=== PATIENT | female | born 1990 | race African-American/Black ===

== ENCOUNTER 2021-07-06 11:09 | Emergency (ER) | payer SELFPAY ==
[2021-07-06] MEDS ORDERED: Sodium Chloride 0.9% 10 ML Syringe FLUSH PRN (11:27)
[2021-07-06] MEDS: Sodium Chloride 0.9% 1,000 ML IV SCH (11:47)
[2021-07-06] MEDS: Ketorolac 30 MG/ML SDV IVPUSH ONE (11:54)
[2021-07-06] MEDS: Ondansetron 4 MG/2 ML SDV IVPUSH PRN (11:55)
[2021-07-06] MEDS: diphenhydrAMINE 50 MG/ML SDV IVPUSH ONE (11:55)
--- NOTE | 2021-07-06 12:33 | EDM.PDOC ---
ED HPI GENERAL MEDICAL PROBLEM - General Chief Complaint: Headache Stated Complaint: Headache Time Seen by Provider: 07/06/21 11:30 Source of Information: Reports: Patient, RN Notes Reviewed History Limitations: Reports: No Limitations - History of Present Illness INITIAL COMMENTS - FREE TEXT/NARRATIVE: This patient presents to the emergency department for evaluation of a headache. She states that she has had a headache for several days and went to another emergency department yesterday where she was Covid tested and given Tylenol. She states that her headache has continued to and that Tylenol is not helping her anymore. She has a history of migraines when she was younger but has not had any for quite some time. She is also approximately 9 weeks gestation but has not established care and is unsure of dates. She has had some photophobia with this as well as some nausea without vomiting or diarrhea. She has had no dysuria. She is not had a fever, sore throat, cough. She is from [place] and has been up here working and will be returning to [place] in approximately 1 week. ED ROS GENERAL - Review of Systems Review Of Systems: Comprehensive ROS is negative, except as noted in HPI. - Physical Exam Exam: See Below Exam Limited By: No Limitations General Appearance: Alert, No Apparent Distress Eye Exam: Bilateral Eye: EOMI, PERRL Ears: Normal External Exam Nose: Normal Inspection Head Exam: Atraumatic, Normocephalic Neck: Normal Inspection, Full Range of Motion Respiratory/Chest: No Respiratory Distress, Lungs Clear, Normal Breath Sounds, No Accessory Muscle Use Neuro Exam (Abbreviated): Alert, Oriented Psychiatric: Normal Affect, Normal Mood Skin Exam: Warm, Dry, Intact, Normal Color Course - Orders/Labs/Meds Orders: Active Orders 24 hr Category Date Time Status Ondansetron [Zofran] Med 07/06/21 11:26 Ordered 4 mg IVPUSH Q4H PRN Sodium Chloride 0.9% [Normal Saline] 1,000 ml Med 07/06/21 11:30 Ordered IV ASDIRECTED Sodium Chloride 0.9% [Saline Flush] Med 07/06/21 11:27 Ordered 10 ml FLUSH ASDIRECTED PRN Saline Lock Insert [OM.PC] Routine Oth 07/06/21 11:27 Ordered Medication Orders Sodium Chloride (Normal Saline) 1,000 mls @ 999 mls/hr IV ASDIRECTED CORAL Last Admin: 07/06/21 11:47 Dose: 999 mls/hr Documented by: NALLELY Ondansetron HCl (Ondansetron 4 Mg/2 Ml Sdv) 4 mg IVPUSH Q4H PRN PRN Reason: Nausea/Vomiting Last Admin: 07/06/21 11:55 Dose: 4 mg Documented by: NALLELY Sodium Chloride (Sodium Chloride 0.9% 10 Ml Syringe) 10 ml FLUSH ASDIRECTED PRN PRN Reason: Keep Vein Open Meds: Medications Generic Name Dose Route Start Last Admin Trade Name Freq PRN Reason Stop Dose Admin Sodium Chloride 1,000 mls @ 999 mls/hr 07/06/21 11:30 07/06/21 11:47 Normal Saline IV 999 mls/hr ASDIRECTED CORAL Administration Ondansetron HCl 4 mg 07/06/21 11:26 07/06/21 11:55 Ondansetron 4 Mg/2 Ml Sdv IVPUSH 4 mg Q4H PRN Administration Nausea/Vomiting Sodium Chloride 10 ml 07/06/21 11:27 Sodium Chloride 0.9% 10 Ml Syringe FLUSH ASDIRECTED PRN Keep Vein Open Discontinued Medications Generic Name Dose Route Start Last Admin Trade Name Freq PRN Reason Stop Dose Admin Diphenhydramine HCl 50 mg 07/06/21 11:26 07/06/21 11:55 Diphenhydramine 50 Mg/Ml Sdv IVPUSH 07/06/21 11:27 50 mg ONETIME ONE Administration Ketorolac Tromethamine 30 mg 07/06/21 11:27 07/06/21 11:54 Ketorolac 30 Mg/Ml Sdv IVPUSH 07/06/21 11:28 30 mg ONETIME ONE Administration - Re-Assessments/Exams Free Text/Narrative Re-Assessment/Exam: 07/06/21 12:31 This patient presents to the emergency department with a report of a headache. She denies any new symptoms and did attempt to use Tylenol prior to arrival without success. Her physical examination was found to be normal with exception of some mild photophobia. Specifically there was a nonfocal neurologic exam with no signs concerning to infectious etiologies. Clinically the life-t hreatening diagnosis of subarachnoid hemorrhage and meningitis or encephalitis were excluded. There are no concerns for metabolic disorders which may produce a headache. After interventions noted above she reported excellent improvement and was able to be discharged home. Patient was instructed to follow-up with her primary care provider in 2 to 3 days if she is not better, sooner if she is worse in any way. She was also encouraged to establish care. The patient was stable at the time of discharge. Departure - Departure Time of Disposition: 12:45 Disposition: Home, Self-Care 01 Condition: Good Clinical Impression: Migraine - Discharge Information *PRESCRIPTION DRUG MONITORING PROGRAM REVIEWED*: No *COPY OF PRESCRIPTION DRUG MONITORING REPORT IN PATIENT ARSENIO: No Instructions: Migraine Headache, [id number] - My Orders Last 24 Hours: My Active Orders 07/06/21 11:26 Ondansetron [Zofran] 4 mg IVPUSH Q4H PRN 07/06/21 11:27 Sodium Chloride 0.9% [Saline Flush] 10 ml FLUSH ASDIRECTED PRN Saline Lock Insert [OM.PC] Routine 07/06/21 11:30 Sodium Chloride 0.9% [Normal Saline] 1,000 ml IV ASDIRECTED - Assessment/Plan Last 24 Hours: My Active Orders 07/06/21 11:26 Ondansetron [Zofran] 4 mg IVPUSH Q4H PRN 07/06/21 11:27 Sodium Chloride 0.9% [Saline Flush] 10 ml FLUSH ASDIRECTED PRN Saline Lock Insert [OM.PC] Routine 07/06/21 11:30 Sodium Chloride 0.9% [Normal Saline] 1,000 ml IV ASDIRECTED
== END 2021-07-06 12:34 | disposition home or self-care (01) ==
LOC: LB.ED 11:09
DX: G43.909 Migraine, unspecified, not intractable, without status migrainosus (principal)
CPT/HCPCS: 96374; 96375; 99283; J1200; J1885; J2405; J7030